=== PATIENT | female | born 1985 | race Caucasian/White ===

== ENCOUNTER 2019-08-22 11:48 | Emergency (ER) | payer SELFPAY ==
--- NOTE | 2019-08-22 12:37 | ER Document Report ---
ED Medical Screen (RME) - General Chief Complaint: Flu Symptoms Stated Complaint: FLU SYMPTOMS Time Seen by Provider: 08/22/19 12:34 Mode of Arrival: Ambulatory Information source: Patient Notes: Otherwise healthy 33-year-old female presenting to the emergency department with chief complaint of flulike symptoms and near syncope. Patient states she started getting fever, chills and sore throat on Saturday, she states yesterday she nearly passed out while she was at work. She states that she wants to make sure nothing more serious is going on. Denies any chest pain. Exam: Heart sounds S1-S2 present, normal rate, normal rhythm. Lung sounds clear and equal bilaterally. I have greeted and performed a rapid initial assessment of this patient. A comprehensive ED assessment and evaluation of the patient, analysis of test results and completion of the medical decision making process will be conducted by additional ED providers. I have specifically instructed the patient or family members with the patient to immediately return to any nursing staff should anything change in the patient's condition or with their chief complaint. TRAVEL OUTSIDE OF THE [place] IN LAST 30 DAYS: No Past Medical History - Social History Chew tobacco use (# tins/day): No Frequency of alcohol use: None Drug Abuse: None - Immunizations Hx Diphtheria, Pertussis, Tetanus Vaccination: Yes Physical Exam - Vital signs Vitals: Temp Pulse Resp BP Pulse Ox 98.3 F 98 20 146/88 H 100 08/22/19 11:54 08/22/19 11:54 08/22/19 11:54 08/22/19 11:54 08/22/19 11:54 Course - Vital Signs Vital signs: Temp Pulse Resp BP Pulse Ox 98.3 F 98 20 146/88 H 100 08/22/19 11:54 08/22/19 11:54 08/22/19 11:54 08/22/19 11:54 08/22/19 11:54
[2019-08-22 13:23] LABS: APPEARANCE,URINE CLOUDY; BILIRUBIN,URINE MODERATE (NEGATIVE); COLOR,URINE AMBER; GLUCOSE, URINE NEGATIVE (NEGATIVE); KETONES,URINE TRACE mg/dL (NEGATIVE); LEUKOCYTE ESTERASE,URINE MODERATE (NEGATIVE); NITRITE,URINE NEGATIVE (NEGATIVE); PROTEIN,URINE 100 mg/dL (NEGATIVE); URINE SPECIFIC GRAVITY 1.053; UROBILINOGEN,URINE NEGATIVE mg/dL (<2.0)
[2019-08-22 13:29] LABS: ABSOLUTE LYMPHOCYTES (AUTO) 1.5 10^3/uL (0.5-4.7); ABSOLUTE MONOCYTES (AUTO) 0.3 10^3/uL (0.1-1.4); ABSOLUTE NEUT (AUTO) 1.8 10^3/uL (1.7-8.2); BASOPHILS % (AUTO) 0.5 % (0-2); EOSINOPHILS % (AUTO) 0.1 % (0-6); HEMOGLOBIN 12.5 g/dL (12.0-15.5); LYMPHOCYTES % (AUTO) 41.4 % (13-45); MEAN CORPUSCULAR HEMOGLOBIN 29.4 pg (27.0-33.4); MEAN CORPUSCULAR HGB CONC 33.9 g/dL (32.0-36.0); MEAN CORPUSCULAR VOLUME 87 fl (80-97); MONOCYTES % (AUTO) 9.2 % (3-13); PLATELET COUNT 193 10^3/uL (150-450); RED BLOOD COUNT 4.26 10^6/uL (3.72-5.28); RED CELL DISTRIBUTION WIDTH 13.8 % (11.5-14.0); SEGMENTED NEUTROPHILS % (AUTO) 48.8 % (42-78); TOTAL CELLS COUNTED % (AUTO) 100 %; WHITE BLOOD COUNT 3.6 10^3/uL (4.0-10.5)
[2019-08-22 13:30] LABS: A TYPE INFLUENZA AG NEGATIVE (NEGATIVE); B INFLUENZA AG NEGATIVE (NEGATIVE)
[2019-08-22 13:41] LABS: ALBUMIN 4.6 g/dL (3.5-5.0); ALKALINE PHOSPHATASE 44 U/L (38-126); ANION GAP 9 (5-19); ASPARTATE AMINO TRANSFERASE 23 U/L (14-36); BILIRUBIN,TOTAL 0.3 mg/dL (0.2-1.3); BLOOD UREA NITROGEN 10 mg/dL (7-20); CALCIUM 9.3 mg/dL (8.4-10.2); CARBON DIOXIDE 27 mmol/L (22-30); CHLORIDE 106 mmol/L (98-107); GLUCOSE 88 mg/dL (75-110); POTASSIUM 4.3 mmol/L (3.6-5.0); TOTAL PROTEIN 7.9 g/dL (6.3-8.2)
[2019-08-22] MEDS ORDERED: CEFTRIAXONE INJ 1000 MG VIAL IV ONE (15:49)
[2019-08-22] MEDS ORDERED: NORMAL SALINE 1000 ML 1,000 ML IV ONE (15:49)
[2019-08-22] MEDS ORDERED: ACETAMINOPHEN 325 MG TABLET PO ONE (15:50)
--- NOTE | 2019-08-22 15:55 | ER Document Report ---
ED General - General Chief Complaint: Flu Symptoms Stated Complaint: FLU SYMPTOMS Time Seen by Provider: 08/22/19 12:34 Mode of Arrival: Ambulatory Notes: 33-year-old woman presents with a 5-day history of feeling bad with fever, body aches and pains and chills. She went to work yesterday and had to leave after 1 hour because of lightheadedness and feeling like she was going to pass out. She also had an episode at home while in the shower, she became lightheaded and felt as though she was going to pass out. She has been taking NyQuil and DayQuil for congestion cough. She has not taken any Tylenol or Motrin. She denies shortness of breath, however, has had a productive cough with a yellowish sputum. TRAVEL OUTSIDE OF THE [place] IN LAST 30 DAYS: No Past Medical History - General Information source: Patient - Social History Smoking Status: Former Smoker Chew tobacco use (# tins/day): No Frequency of alcohol use: None Drug Abuse: None Family History: Reviewed & Not Pertinent Patient has suicidal ideation: No Patient has homicidal ideation: No - Immunizations Hx Diphtheria, Pertussis, Tetanus Vaccination: Yes Review of Systems - Review of Systems Notes: Constitutional: + Fever. HENT: + Nasal congestion. Eyes: Negative for visual changes. Cardiovascular: Negative for chest pain. Respiratory: + Cough Gastrointestinal: Negative for abdominal pain, vomiting or diarrhea. Genitourinary: Negative for dysuria. Musculoskeletal: + Myalgias Skin: Negative for rash. Neurological: Negative for headaches, weakness or numbness. 10 point ROS negative except as marked above and in HPI. Physical Exam - Vital signs Vitals: Temp Pulse Resp BP Pulse Ox 98.3 F 98 20 146/88 H 100 08/22/19 11:54 08/22/19 11:54 08/22/19 11:54 08/22/19 11:54 08/22/19 11:54 - Notes Notes: PHYSICAL EXAMINATION: Physical Exam: General: Well-nourished well-developed 33-year-old woman in no acute distress HEENT: NC/AT, pupils equal round and reactive to light, MM moist, nasal congestion, TMs clear, Neck: supple, no stiffness, no pain, no adenopathy, no masses. Lungs: clear, no wheezing, no rales no rhonchi CVS: Regular rate and rhythm no murmur gallop or rub Abdomen: Soft active nontender, no masses, no hepatosplenomegaly Ext: No edema clubbing or cyanosis. Neuro: Alert and responsive, moving all 4 extremities on command, cranial nerves intact. Skin: Intact no open lesions, no rash PSYCH: Normal mood, normal affect. Course - Re-evaluation Re-evalutation: 08/22/19 15:59 Patient was found to have a negative flu test, laboratory data reveals a significant urinary tract infection, patient is not allergic to any medications, she is given IV ceftriaxone 1 g, Tylenol 975 mg p.o. I have discussed with the patient the need to continue her antibiotic as an outpatient and will treat the UTI. She is in agreement with that plan. - Vital Signs Vital signs: Temp Pulse Resp BP Pulse Ox 97.9 F 86 16 129/90 H 100 08/22/19 16:01 08/22/19 16:01 08/22/19 16:01 08/22/19 16:01 08/22/19 16:01 - Laboratory Result Diagrams: 08/22/19 12:50 08/22/19 12:50 Laboratory results interpreted by me: 08/22/19 08/22/19 12:50 12:50 WBC 3.6 L Urine Protein 100 H Urine Ketones TRACE H Urine Bilirubin MODERATE H Ur Leukocyte Esterase MODERATE H Urine Ascorbic Acid 20 H 08/22/19 16:02 I have reviewed laboratory data and used this information for the treatment decisions regarding the patient. Discharge - Discharge Clinical Impression: Urinary tract infection Qualifiers: Urinary tract infection type: site unspecified Hematuria presence: without hematuria Qualified Code(s): N39.0 - Urinary tract infection, site not specified Acute bronchitis Qualifiers: Bronchitis organism: unspecified organism Qualified Code(s): J20.9 - Acute bronchitis, unspecified Condition: Good Disposition: HOME, SELF-CARE Instructions: Bronchitis ([facility]), Cephalexin ([facility]), Urinary Tract Infection ([facility]) Additional Instructions: You were diagnosed with acute bronchitis likely a viral illness, he also has a UTI and we are giving you antibiotics, a prescription for Tessalon Perle is given to help with cough and I suggested that you also begin a [id number] decongestant to help with that drainage and congestion. Please take the medications as they were prescribed and follow-up with your primary care doctor. If your symptoms are worsening or if you have other concerns please return to the emergency department. Prescriptions: Benzonatate [Tessalon Perles 100 mg Capsule] 200 mg PO Q8HP PRN #40 capsule PRN Reason: Cough Cephalexin Monohydrate [Keflex 500 mg Capsule] 500 mg PO Q8 10 Days capsule Forms: Return to Work
[2019-08-22] MEDS ORDERED: CEFTRIAXONE 1 GM/D5W RTU 1 GM/50 ML RTUPB IV ONE (16:03)
[2019-08-22 17:29] VITALS: BP 126/74
== END 2019-08-22 17:29 | disposition home or self-care (01) ==
LOC: ER 11:48
DX: N39.0 Urinary tract infection, site not specified (principal); J20.9 Acute bronchitis, unspecified; R55 Syncope and collapse; R50.9 Fever, unspecified; M79.10 Myalgia, unspecified site
CPT/HCPCS: 99283; 96361; 96365; 36415; 85025; 80053; 81001; 87804; J0696; J7030